=== PATIENT | female | born 1960 | race Asian ===

== ENCOUNTER 2024-02-02 10:27 | Day surgery (SDC) | payer OTHER ==
[~2024-02-02] VITALS: Ht 157.5 cm; Wt 91.6 kg
[2024-02-02] MEDS ORDERED: fentaNYL citrate 0.05 MG/ML VIAL ONE (11:16)
[2024-02-02] MEDS: fentaNYL citrate 0.05 MG/ML VIAL IVP ONE (11:30)
[2024-02-02] MEDS: LIDOCAINE 2% 100 MG/5 ML UJET TP ONE (11:36)
== END 2024-02-02 12:46 | disposition home or self-care (01) ==
LOC: MDS 10:27 → MMU 10:28 → MDS 12:46
PROVIDERS: ATTEND Internal Medicine Gastroenterology
DX: Z12.11 Encounter for screening for malignant neoplasm of colon (principal); K63.5 Polyp of colon; K57.30 Diverticulosis of large intestine without perforation or abscess without bleeding; Z80.0 Family history of malignant neoplasm of digestive organs; Z86.010 Personal history of colon polyps
CPT/HCPCS: 45385; J3010